=== PATIENT | female | born 1950 | race Caucasian/White ===

== ENCOUNTER 2024-02-23 17:36 | Emergency (ER) | payer OTHER, MEDICAID ==
[~2024-02-23] VITALS: Ht 167.6 cm; Wt 59.0 kg
[2024-02-23 17:43] VITALS: O2SAT 100
[2024-02-23 18:12] VITALS: TEMP 98.3
[2024-02-23 22:05] VITALS: BP 118/75; PULSE 96; RESP 21
== END 2024-02-23 23:08 | disposition home or self-care (01) ==
LOC: ER 17:36
DX: R06.02 Shortness of breath (principal); R06.2 Wheezing; I10 Essential (primary) hypertension
CPT/HCPCS: 71045; 93005; 99283

== ENCOUNTER 2024-04-25 00:05 | Emergency (ER) | payer MEDICARE, MEDICAID ==
[~2024-04-25] VITALS: Ht 157.5 cm; Wt 50.0 kg
[2024-04-25 00:18] VITALS: TEMP 97.9; O2SAT 99
[2024-04-25 00:31] LABS: BASOPHILS % 0.4 % (0.0-2.0); EOSINOPHILS % 4.2 % (0.0-5.0); HEMATOCRIT. 41.3 % (36.0-48.0); HEMOGLOBIN. 13.8 g/dL (12.0-16.0); LYMPHOCYTES % 36.5 % (20.0-50.0); MEAN CORPUSCULAR HEMOGLOBIN 30.3 pg (28.0-32.0); MEAN CORPUSCULAR HGB CONC 33.5 g/dL (31.0-37.0); MEAN CORPUSCULAR VOLUME 90.3 fL (81.0-99.0); MEAN PLATELET VOLUME 6.3 fl (7.4-10.4); NEUTROPHILS % 51.9 % (40.0-76.0); PLATELET 541 x1000/uL (130-400); RED BLOOD CELL COUNT 4.57 mill/uL (4.2-5.4); RED CELL DISTRIBUTION WIDTH 13.8 % (11.6-14.6); WHITE BLOOD COUNT 5.8 x1000/uL (4.5-11.0)
[2024-04-25 00:42] LABS: CHLORIDE 104 mEq/L (98-107); POTASSIUM 3.6 mEq/L (3.5-5.1); SODIUM 139 mEq/L (136-145)
[2024-04-25 00:43] LABS: CALCIUM 9.5 mg/dL (8.7-10.4); CARBON DIOXIDE 27 mEq/L (21-32)
[2024-04-25 00:48] LABS: CREATININE 0.8 mg/dL (0.6-1.0); GLUCOSE 116 mg/dL (70-105); UREA NITROGEN BLOOD 20 mg/dL (9-23)
[2024-04-25 00:52] LABS: ETHANOL BLOOD < 10 mg/dL (<10); TROPONIN I HIGH SENSITIVITY < 4 ng/L (3.0-34)
[2024-04-25] MEDS: ONDANSETRON HCL 4MG/2ML INJ IV ONE (01:48)
[2024-04-25] MEDS: ACETAMINOPHEN 1000MG/100ML 100 ML IV ONE (01:48)
[2024-04-25] MEDS ORDERED: METO-293 MT (03:09)
[2024-04-25] MEDS ORDERED: ACET-2708 MT (03:09)
[2024-04-25 03:39] VITALS: BP 118/51; PULSE 63; RESP 20
== END 2024-04-25 03:56 | disposition home or self-care (01) ==
LOC: ER 00:05
DX: R53.1 Weakness (principal); R51.9 Headache, unspecified; I10 Essential (primary) hypertension; J45.909 Unspecified asthma, uncomplicated; Z88.1 Allergy status to other antibiotic agents; Z98.890 Other specified postprocedural states; Z86.73 Personal history of transient ischemic attack (TIA), and cerebral infarction without residual deficits
CPT/HCPCS: 36415; 71045; 80048; 80320; 83880; 84484; 85025; 93005; 96365; 99285; G0480; J0131